=== PATIENT | female | born 1980 | race African-American/Black ===

== ENCOUNTER 2016-11-09 21:00 | Emergency (ER) | payer OTHER ==
[~2016-11-09] VITALS: Ht 175.3 cm; Wt 109.3 kg
[~2016-11-09 21:00] MED LIST: ACETAMINOPHEN-1 EAC1 ORAL; IBUPROFEN600 MG ORAL; NKM; NORCO 5/3251 TAB ORAL; PREDNISONE20 MG ORAL; ROBAXIN-750750 MG PO
[2016-11-09 21:31] VITALS: BP 115/73
--- NOTE | 2016-11-09 21:38 | Emergency Room Report ---
History of Present Illness General Chief Complaint: General Complaint Source: Patient Present Illness HPI Is a 36-year-old female with history anxiety. She presents with multiple complaints. Her main complaint is left ankle pain. No trauma. Onset for last to 3 days. Pain is localized to the medial aspect of the ankle. Worse with walking. Pain is 8/10. No nausea no vomiting. Patient also complaining of a lot of stress at work. This is exacerbating her back pain and joint pain. No trauma. She also said that her menstrual period is about a week late. No bleeding or pain. Allergies: Coded Allergies: No Known Allergies (Unverified , 11/25/11) Patient History Past Medical History: see triage record, old chart reviewed, psych hx Past Surgical History: none Pertinent Family History: none Social History: Denies: smoking Last Menstrual Period: 10/03/16 Immunizations: other Reviewed Nursing Documentation: PMH: Agreed, PSxH: Agreed Nursing Documentation-PMH Past Medical History: No History, Except For Hx Asthma: Yes History Of Psychiatric Problem: Yes - anxiety Review of Systems Eye: Denies: eye pain, blurred vision ENT: Denies: ear pain, nose congestion, throat swelling Respiratory: Denies: cough, shortness of breath Cardiovascular: Denies: chest pain, palpitations Gastrointestinal: Denies: abdominal pain, diarrhea, nausea, vomiting Musculoskeletal: Reports: back pain, joint pain Skin: Denies: rash Neurological: Denies: headache, numbness Endocrine: Denies: increased thirst, increased urine Hematologic/Lymphatic: Denies: easy bruising All Other Systems: negative except mentioned in HPI Physical Exam Vital Signs Date Time Temp Pulse Resp B/P (MAP) Pulse Ox O2 Delivery O2 Flow Rate FiO2 11/09/16 21:12 97.9 96 20 115/73 100 Room Air vitals is normal Sp02 EP Interpretation: reviewed, normal General Appearance: well appearing, no apparent distress, alert Head: normocephalic, atraumatic Eyes: bilateral eye PERRL, bilateral eye EOMI ENT: hearing grossly normal, normal pharynx Neck: full range of motion, supple, no meningismus Respiratory: chest non-tender, lungs clear, normal breath sounds Cardiovascular #1: regular rate, rhythm, no murmur Gastrointestinal: normal bowel sounds, non tender, no mass, no organomegaly, no bruit, non-distended Musculoskeletal: back normal, normal range of motion, other - Left ankle tenderness. Minimal edema. Full range of motion. Sensation normal. Pulses normal. No calf tenderness or swelling. Psychiatric: mood/affect normal Skin: warm/dry Procedures Splinting Splinting : Consent: Verbal Pre-Made Type: MARIYA wrap Pre-Proc Neuro Vasc Exam: normal Post-Proc Neuro Vasc Exam: normal Patient Tolerated: Well Complications: None Medical Decision Making Diagnostic Impression: Primary Impression: Ankle sprain Qualified Codes: S93.402A - Sprain of unspecified ligament of left ankle, initial encounter ER Course Patient present with ankle pain. No evidence of fracture dislocation. No evidence of gout. Joint is not hot. No evidence of septic joint. No evidence of DVT. We'll discharge home. Other X-Ray Diagnostic Results Other X-Ray Diagnostic Results : X-Ray ordered: Left ankle x-rays # of Views/Limited Vs Complete: 3 View Indication: Pain EP Interpretation: Yes Interpretation: no dislocation, no soft tissue swelling, no fractures Impression: No acute disease Interpreting ER Provider: Electronically signed by Michael Justin MD Last Vital Signs Date Time Temp Pulse Resp B/P (MAP) Pulse Ox O2 Delivery O2 Flow Rate FiO2 11/09/16 21:31 97.9 96 20 115/73 100 Room Air Status: improved Disposition: HOME, SELF-CARE Condition: Stable Scripts Ibuprofen* (MOTRIN*) 600 Mg Tablet 600 MG ORAL Q8H Y for For Pain, #30 TAB 0 Refills Prov: MICHAEL JUSTIN M.D. 11/09/16 Additional Instructions: Followup with your DrEwelina in 7 days. Return if symptom worsen. MICHAEL JUSTIN M.D. Nov 09, 2016 21:38
[2016-11-09] MEDS ORDERED: Norco 5mg/325mg tab ORAL ONE (21:45)
[2016-11-09] MEDS ORDERED: IBUPROFEN600 MG ORAL (22:17)
[2016-11-09 22:23] VITALS: BP 115/73
--- NOTE | 2016-11-10 10:34 | Diagnostic Imaging Report ---
Indication: left ankle pain Comparison: None Findings: 3 views of the left ankle obtained. No acute fracture, malalignment, periostitis, or osteochondral defects are identified. Soft tissue swelling is present. Impression: No acute findings
== END 2016-11-09 22:23 | disposition home or self-care (01) ==
LOC: EMR 21:36
DX: S93.402A Sprain of unspecified ligament of left ankle, initial encounter (principal); F41.9 Anxiety disorder, unspecified; J45.909 Unspecified asthma, uncomplicated; X58.XXXA Exposure to other specified factors, initial encounter; Y92.9 Unspecified place or not applicable
CPT/HCPCS: 81025; 99283; 99284